=== PATIENT | female | born 1945 | race Caucasian/White ===

== ENCOUNTER 2024-02-17 15:26 | Emergency (ER) | payer MEDICARE ==
[~2024-02-17] VITALS: Ht 157.5 cm; Wt 52.2 kg
[2024-02-17] MEDS ORDERED: MACROBID 100 M100 MG PO (15:41)
[2024-02-17] MEDS ORDERED: PYRIDIUM100 MG PO (15:41)
[2024-02-17] MEDS ORDERED: NITROFURANTOIN MACROCRYSTALS 100 MG CAP PO ONE (15:45)
[2024-02-17] MEDS ORDERED: PLAVIX75 MG PO (16:01)
[2024-02-17] MEDS ORDERED: DIOVAN160 MG PO (16:01)
[2024-02-17] MEDS ORDERED: ASPIRIN EC81 MG PO (16:01)
[2024-02-17 16:11] VITALS: PULSE 66; RESP 16; TEMP 98.4; O2SAT 100
== END 2024-02-17 16:11 | disposition home or self-care (01) ==
LOC: FSED 15:30
DX: R30.0 Dysuria (principal); N39.0 Urinary tract infection, site not specified; R60.9 Edema, unspecified; N18.4 Chronic kidney disease, stage 4 (severe); I48.91 Unspecified atrial fibrillation; I25.10 Atherosclerotic heart disease of native coronary artery without angina pectoris
CPT/HCPCS: 81003; 99283

== ENCOUNTER 2024-12-13 13:57 | Emergency (ER) | payer MEDICARE ==
[~2024-12-13] VITALS: Ht 157.5 cm; Wt 58.3 kg
[~2024-12-13 13:57] MED LIST: ASPIRIN EC81 MG PO; DIOVAN160 MG PO; MACROBID 100 M100 MG PO; PLAVIX75 MG PO; PYRIDIUM100 MG PO
[2024-12-13] MEDS: ONDANSETRON HCL INJ 2MG/ML 2ML 2 MG/ML VIAL IV STA (15:54)
[2024-12-13] MEDS: CEFTRIAXONE 1 GM VIAL IV ONE (15:54)
[2024-12-13] MEDS: SODIUM CHLORIDE 0.9% 1000ML 1,000 ML IV ONE (15:54)
[2024-12-13] MEDS ORDERED: ONDANSETRON HCL INJ 2MG/ML 2ML 2 MG/ML VIAL IV PRN (16:30)
[2024-12-13] MEDS ORDERED: SODIUM CHLORIDE 0.9% 1000ML 1,000 ML IV SCH (16:30)
[2024-12-13 18:00] VITALS: PULSE 78; RESP 16; TEMP 97.5; O2SAT 95
[2024-12-13] MEDS: METOCLOPRAMIDE HCL 10 MG/2ML VIAL IV ONE (18:37)
== END 2024-12-13 18:40 | disposition short-term general hospital (02) ==
LOC: FSED 14:05
DX: R11.2 Nausea with vomiting, unspecified (principal); E87.1 Hypo-osmolality and hyponatremia; N39.0 Urinary tract infection, site not specified; R42 Dizziness and giddiness; I48.91 Unspecified atrial fibrillation; N18.4 Chronic kidney disease, stage 4 (severe); I25.10 Atherosclerotic heart disease of native coronary artery without angina pectoris; Z11.52 Encounter for screening for COVID-19; R94.31 Abnormal electrocardiogram [ECG] [EKG]
CPT/HCPCS: 0223U; 71046; 80053; 80076; 81003; 83880; 84484; 85025; 85379; 87400; 93005; 99283; J0696; J2405; J2765; J7030